=== PATIENT | female | born 1960 | race Caucasian/White ===

== ENCOUNTER 2020-07-16 10:24 | Emergency (ER) | payer BC ==
[2020-07-16] MEDS ORDERED: ACETAMINOPHEN 500 MG TAB ONE (11:42)
--- NOTE | 2020-07-16 12:34 | RAD REPORT ---
EXAM DESCRIPTION: Aj Pa And Lat (2 Views)07/16/2020 12:26 pm CLINICAL HISTORY: Cough COMPARISON: None FINDINGS: The lungs are mildly hazy. The heart is normal size IMPRESSION: The lungs are mildly hazy suspicious for pneumonia
[2020-07-16 14:09] LABS: Urine Blood TRACE (NEG); Urine Glucose NEGATIVE (NEG); Urine Protein NEGATIVE (NEG); Urine Specific Gravity 1.015 (1.005-1.030); Urine pH 5.5 (5.0-7.0)
[2020-07-16 14:09] LABS: Absolute Lymphocytes (CBC) 0.9 K/uL (0.7-4.9); Basophils % 0.2 % (0-1.3); Hematocrit 47.1 % (36.0-45.0); Lymphocytes % 11.8 % (15.3-44.8); MPV 9.3 fL (7.6-11.3); RBC Red Blood Cell Count 5.43 M/uL (3.86-4.86)
[2020-07-16 14:15] LABS: Urine Amorphous Sediment 2+ /HPF (NONE SEEN); Urine Bacteria 20-50 /HPF (<20); Urine Coarse Granular Casts >10 /LPF (NONE SEEN); Urine RBC <5 /HPF (NONE SEEN)
[2020-07-16 14:23] LABS: Protime INR 0.99
[2020-07-16 14:30] LABS: ALT/SGPT 36 U/L (12-78); AST/SGOT 19 U/L (15-37); Albumin 3.5 g/dL (3.4-5.0); Alkaline Phosphatase 74 U/L (45-117); BUN Blood Urea Nitrogen 18 mg/dL (7-18); Bicarbonate 25 mmol/L (21-32); Bilirubin Direct 0.1 mg/dL (0-0.2); Bilirubin Total 0.4 mg/dL (0.2-1.0); Glucose Level 138 mg/dL (74-106); NT PRO-BNP 46 pg/mL (<125); Potassium 3.8 mmol/L (3.5-5.1); Sodium Level 138 mmol/L (136-145); Troponin (Emerg Dept Use Only) < 0.02 ng/mL (0.0-0.045)
[2020-07-16] MEDS ORDERED: NA CHLORIDE 0.9% 500 ML ONE (15:17)
[2020-07-16] MEDS ORDERED: METHYLPREDNISOLONE 125 MG INJ ONE (15:17)
[2020-07-16] MEDS ORDERED: CEFTRIAXONE/SWI 1gm 1 GM/10 ML SYR ONE (15:17)
--- NOTE | 2020-07-16 15:27 | RAD REPORT ---
EXAM DESCRIPTION: CT - Chest For Pe Angio - 07/16/2020 3:15 pm CLINICAL HISTORY: Chest pain COMPARISON: July 16 2020 chest x-ray TECHNIQUE: Dynamically enhanced axial 3 mm thick images of the chest were obtained during administra tion of <100> mL Isovue 370 IV contrast. Coronal and oblique reconstruction images were generated and reviewed. Exam utilizes a protocol for optimal evaluation of pulmonary arterial tree. Maximum intensity projections 3D imaging was utilized All CT scans are performed using dose optimization technique as appropriate and may include automated exposure control or mA/KV adjustment according to patient size. FINDINGS: A pulmonary embolus is not seen. A thoracic aortic aneurysm is not noted. A pleural effusion is not seen. A pericardial effusion is not seen. Mild bilateral ground-glass opacities within the lungs IMPRESSION: Negative for a pulmonary embolism. Mild bilateral ground-glass opacities within the lungs may indicate Covid pneumonia
--- NOTE | 2020-07-16 15:55 | EDPHYS ---
Physician Documentation [facility] Name: Areli Urias Age: 60 yrs Sex: Female : 1960 Arrival Date: 07/16/2020 Time: 10:30 Bed 19 Private MD: ED Physician Sanjiv Jean Baptiste HPI: 07/16 13:25 This 60 yrs old Female presents to ER via Ambulatory with complaints of cp Breathing Difficulty, Chest Tightness. 13:25 The patient has shortness of breath at rest. Onset: The symptoms/episode began/occurred cp gradually. Duration: The symptoms are continuous. Associated signs and symptoms: Pertinent positives: chest pain, non-productive cough, fever, Pertinent negatives: diaphoresis, vomiting. Severity of symptoms: in the emergency department the symptoms are unchanged despite home interventions. 13:25 Patient reports being diagnosed with COVID-19 last week. Finished course of Zithromax cp and steroids. Reports cough, chest tightness and fever. Historical: - Allergies: 11:22 No Known Allergies; ca1 - Home Meds: 11:22 None [Active]; ca1 - PMHx: 11:22 None; ca1 - PSHx: 11:22 None; ca1 - Immunization history:: Client reports receiving the 1st dose of the Covid vaccine, Pneumococcal vaccine is up to date, Flu vaccine is up to date. - Social history:: Smoking status: Patient denies any tobacco usage or history of. ROS: 13:30 Constitutional: Positive for fever, Negative for poor PO intake. cp 13:30 Eyes: Negative for injury, pain, redness, and discharge. cp 13:30 ENT: Negative for ear pain, sore throat, difficulty swallowing, difficulty handling secretions. 13:30 Cardiovascular: Positive for chest pain, with cough, Negative for edema. 13:30 Respiratory: Positive for cough, with no reported sputum, shortness of breath, at rest. Negative for wheezing. 13:30 Abdomen/GI: Negative for abdominal pain, nausea, vomiting, and diarrhea, constipation. 13:30 : Negative for urinary symptoms. 13:30 Neuro: Negative for altered mental status, dizziness, headache, syncope, weakness. 13:30 All other systems are negative. Exam: 11:35 ECG was reviewed by the Attending Physician. cp 13:35 Constitutional: The patient appears in no acute distress, alert, awake, cp non-diaphoretic, non-toxic, well developed, well nourished. 13:35 Head/Face: Normocephalic, atraumatic. cp 13:35 Eyes: Periorbital structures: appear normal, Conjunctiva: normal, no exudate, no injection, Sclera: no appreciated abnormality, Lids and lashes: appear normal, bilaterally. 13:35 ENT: External ear(s): are unremarkable, Nose: is normal, Mouth: Lips: moist, Oral mucosa: moist, Posterior pharynx: Airway: no evidence of obstruction, patent. 13:35 Neck: ROM/movement: is normal, is supple, no meningismus, no nuchal rigidity. 13:35 Chest/axilla: Inspection: normal, Palpation: is normal, no crepitus, no tenderness. 13:35 Cardiovascular: Rate: normal, Rhythm: regular, Edema: is not appreciated, JVD: is not appreciated. 13:35 Respiratory: the patient does not display signs of respiratory distress, Respirations: labored breathing, is not present, intercostal retractions, are absent, shallow respirations, that is mild, Breath sounds: bronchial sounds, that are mild, are heard diffusely, stridor, is not appreciated, wheezing: is not appreciated. 13:35 Abdomen/GI: Inspection: abdomen appears normal, Bowel sounds: active, all quadrants, Palpation: abdomen is soft and non-tender, in all quadrants. 13:35 Back: pain, is absent, ROM is normal. 13:35 Neuro: Orientation: to person, place \T\ time. Mentation: is normal, Motor: moves all fours, strength is normal. Vital Signs: 11:20 BP 127 / 90; Pulse 108; Resp 18 S; Temp 103.1(O); Pulse Ox 97% on R/A; Weight 97.52 kg ca1 (R); Height 5 ft. 6 in. (167.64 cm) (R); Pain 8/10; 12:00 BP 113 / 80; Pulse 83; Resp 17; Pulse Ox 100% ; bp 13:00 BP 135 / 84; Pulse 91; Resp 17; Pulse Ox 95% ; bp 14:30 BP 137 / 79; Pulse 90; Resp 16; Pulse Ox 94% ; bp 16:30 BP 127 / 84; Pulse 81; Resp 16; Pulse Ox 93% ; bp 17:30 BP 131 / 82; Pulse 85; Resp 17; Temp 99.1; Pulse Ox 94% ; bp 11:20 Body Mass Index 34.70 (97.52 kg, 167.64 cm) ca1 MDM: 13:19 Patient medically screened. cp 15:50 Data reviewed: vital signs, nurses notes, lab test result(s), EKG, radiologic studies, cp CT scan, plain films. 15:50 Differential diagnosis: Bronchitis pneumonia, Pneumothorax pulmonary edema, Pulmonary cp Embolism Sepsis. Test interpretation: by ED physician or midlevel provider: ECG, plain radiologic studies. Counseling: I had a detailed discussion with the patient and/or guardian regarding: the historical points, exam findings, and any diagnostic results supporting the discharge/admit diagnosis, lab results, radiology results, to return to the emergency department if symptoms worsen or persist or if there are any questions or concerns that arise at home. ED course: VSS. Symptoms improved with meds. Patient with oxygen sats above 90% on room air while being monitored in ED. No signs of respiratory distress and patient appears non-toxic. Will discharge to home for continued monitoring. 07/16 13:22 Order name: Basic Metabolic Panel cp 07/16 13:22 Order name: CBC with Diff cp 07/16 13:22 Order name: LFT's cp 07/16 13:22 Order name: Magnesium cp 07/16 13:22 Order name: NT PRO-BNP cp 07/16 13:22 Order name: PT-INR cp 07/16 13:22 Order name: Troponin (emerg Dept Use Only) cp 07/16 13:22 Order name: CRP cp 07/16 13:22 Order name: D-Dimer cp 07/16 13:22 Order name: Urine Microscopic Only cp 07/16 13:52 Order name: Urine Dipstick--Ancillary (enter results) eb 07/16 13:52 Order name: Urine --Ancillary (enter results) eb 07/16 14:09 Order name: Urine --Ancillary; Complete Time: 14:30 EDMS 07/16 14:09 Order name: Urine Dipstick-Ancillary; Complete Time: 14:30 EDMS 07/16 11:23 Order name: Chest Pa And Lat (2 Views) XRAY ca1 07/16 12:35 Order name: RAD; Complete Time: 14:30 EDMS 07/16 14:16 Order name: Urine Microscopic Only; Complete Time: 14:30 EDMS 07/16 14:54 Interpretation: Normal except: UBACT 20-50; SQEPI 20-50; AMORPH 2+. cp 07/16 14:22 Order name: CBC with Automated Diff; Complete Time: 14:30 EDMS 07/16 14:31 Interpretation: Normal except: RBC 5.43; HGB 15.7; HCT 47.1; SARA% 82.7; LYM% 11.8. cp 07/16 14:25 Order name: Protime (+INR); Complete Time: 14:30 EDMS 07/16 14:25 Order name: D-Dimer; Complete Time: 14:30 EDMS 07/16 14:30 Order name: Basic Metabolic Panel; Complete Time: 14:31 EDMS 07/16 14:54 Interpretation: Normal except: GLUC 138; GFR 54. cp 07/16 14:30 Order name: Liver (Hepatic) Function; Complete Time: 14:31 EDMS 07/16 14:30 Order name: Troponin (Emerg Dept Use Only); Complete Time: 14:31 EDMS 07/16 14:30 Order name: NT PRO-BNP; Complete Time: 14:31 EDMS 07/16 14:30 Order name: C-Reactive Protein; Complete Time: 14:31 EDMS 07/16 14:31 Interpretation: Abnormal: C-REACTIVE PROT 82.20. cp 07/16 14:30 Order name: Magnesium; Complete Time: 14:31 EDMS 07/16 14:56 Order name: CT Chest For PE Angio cp 07/16 15:27 Order name: CT; Complete Time: 15:35 EDMS 07/16 11:23 Order name: EKG; Complete Time: 11:24 ca1 07/16 11:23 Order name: EKG - Nurse/Tech; Complete Time: 11:29 ca1 07/16 13:22 Order name: Cardiac monitoring; Complete Time: 13:36 cp 07/16 13:22 Order name: IV Saline Lock; Complete Time: 13:36 cp 07/16 13:22 Order name: Labs collected and sent; Complete Time: 13:36 cp 07/16 13:22 Order name: O2 Per Protocol; Complete Time: 13:24 cp 07/16 13:22 Order name: O2 Sat Monitoring; Complete Time: 13:24 cp 07/16 13:22 Order name: Urine Dipstick-Ancillary (obtain specimen); Complete Time: 13:37 cp EC:35 Rate is 102 beats/min. Rhythm is regular. WI interval is normal. QRS interval is cp normal. QT interval is normal. Interpreted by me. Reviewed by me. Administered Medications: 11:25 Drug: Tylenol 1000 mg Route: PO; ca1 15:00 Drug: NS 0.9% 500 ml Volume: 500 ml; Route: IV; Rate: 1 bolus; Site: right antecubital; bp 18:00 Follow up: IV Status: Completed infusion; IV Intake: 500ml bp 15:00 Drug: SOLU-Medrol 80 mg Route: IVP; Site: right antecubital; bp 17:59 Follow up: Response: No adverse reaction bp 15:00 Drug: Rocephin 1 grams Route: IV; Rate: calculated rate; Site: right antecubital; bp 17:59 Follow up: IV Status: Completed infusion; IV Intake: 50ml bp Disposition: 07/17 07:51 Co-signature as Attending Physician, Sanjiv Jean Baptiste MD I agree with the assessment and [facility] plan of care. Disposition: 07/16/20 15:54 Discharged to Home. Impression: Other viral pneumonia, Coronavirus infection, unspecified. - Condition is Stable. - Discharge Instructions: COVID-19. - Prescriptions for Augmentin 875- 125 mg Oral Tablet - take 1 tablet by ORAL route every 12 hours for 10 days; 20 tablet. Prednisone 20 mg Oral Tablet - take 2 tablets by ORAL route once daily for 5 days then 1 tablet daily for 5 days; 15 tablet. Albuterol Sulfate 90 mcg/actuation - inhale 1-2 puff by INHALATION route every 4-6 hours; 1 Inhaler. - Medication Reconciliation Form, Thank You Letter, Antibiotic Education, Prescription Opioid Use form. - Follow up: Private Physician; When: 1 - 2 days; Reason: Recheck today's complaints. - Problem is new. - Symptoms have improved. Signatures: Dispatcher [employer] Sanjiv Yanez MD MD cha Page, Corey, PA PA cp Peltier, Brian, RN RN bp Santa Edwards RN RN ca1 Corrections: (The following items were deleted from the chart) 07/16 11:17 11:02 Allergies: No Known Allergies; ca1 ca1 11:17 11:02 PMHx: Hypertension; ca1 ca1 11:17 11:02 PMHx: Non Hodgkin's Leukemia; ca1 ca1 11:17 11:02 PSHx: Hysterectomy; ca1 ca1 18:00 15:54 07/16/2020 15:54 Discharged to Home. Impression: Other viral pneumonia; bp Coronavirus infection, unspecified. Condition is Stable. Forms are Medication Reconciliation Form, Thank You Letter, Antibiotic Education, Prescription Opioid Use. Follow up: Private Physician; When: 1 - 2 days; Reason: Recheck today's complaints. Problem is new. Symptoms have improved. cp
--- NOTE | 2020-07-16 15:55 | ER ---
Nurse's Notes [facility] Name: Areli Urias Age: 60 yrs Sex: Female : 1960 Arrival Date: 07/16/2020 Time: 10:30 Bed 19 Private MD: Diagnosis: Other viral pneumonia;Coronavirus infection, unspecified Presentation: 07/16 11:20 Chief complaint: Patient states: Covid+ 8-9 days. I think I have pneumonia. Cough and ca1 SOB is getting worse and chest tightness. Coronavirus screen: Client denies travel out of the [place] in the last 14 days. Client reports previous positive COVID test result. Date of collection: July 08, 2020 Staff notified of need for isolation. Ebola Screen: Patient negative for fever greater than or equal to 101.5 degrees Fahrenheit, and additional compatible Ebola Virus Disease symptoms Patient denies exposure to infectious person. Patient denies travel to an Ebola-affected area in the 21 days before illness onset. No symptoms or risks identified at this time. Initial Sepsis Screen: Does the patient meet any 2 criteria? No. Patient's initial sepsis screen is negative. Does the patient have a suspected source of infection? No. Patient's initial sepsis screen is negative. Risk Assessment: Do you want to hurt yourself or someone else? Patient reports no desire to harm self or others. Onset of symptoms was July 16, 2020. 11:20 Acuity: MARIEL 3 ca1 11:20 Method Of Arrival: Ambulatory ca1 Triage Assessment: 11:10 General: Appears distressed, uncomfortable, obese, Behavior is calm, cooperative, bp appropriate for age. Pain: Denies pain. EENT: No deficits noted. Neuro: Level of Consciousness is awake, alert, obeys commands, Oriented to Appropriate for age. Cardiovascular: No deficits noted. Respiratory: Reports shortness of breath cough that is Onset: The symptoms/episode began/occurred 8-9 DAYS, the patient has moderate shortness of breath. GI: No signs and/or symptoms were reported involving the gastrointestinal system. : No signs and/or symptoms were reported regarding the genitourinary system. Derm: No deficits noted. Musculoskeletal: No deficits noted. Historical: - Allergies: 11: No Known Allergies; ca1 - Home Meds: 11:22 None [Active]; ca1 - PMHx: 11:22 None; ca1 - PSHx: 11:22 None; ca1 - Immunization history:: Client reports receiving the 1st dose of the Covid vaccine, Pneumococcal vaccine is up to date, Flu vaccine is up to date. - Social history:: Smoking status: Patient denies any tobacco usage or history of. Screenin:10 Abuse screen: Denies threats or abuse. Denies injuries from another. Nutritional bp screening: No deficits noted. Tuberculosis screening: No symptoms or risk factors identified. Fall Risk None identified. Assessment: 11:10 General: SEE TRIAGE NOTE. Neuro: Level of Consciousness is awake, alert, obeys bp commands, Oriented to Appropriate for age. Cardiovascular: Rhythm is sinus rhythm. Respiratory: Airway is patent Respiratory effort is even, unlabored, Breath sounds are coarse bilaterally. GI: No signs and/or symptoms were reported involving the gastrointestinal system. : No signs and/or symptoms were reported regarding the genitourinary system. EENT: No deficits noted. Derm: No deficits noted. Musculoskeletal: No signs and/or symptoms reported regarding the musculoskeletal system. 12:00 Reassessment: No changes from previously documented assessment. Patient and/or family bp updated on plan of care and expected duration. Pain level reassessed. Patient is alert, oriented x 3, equal unlabored respirations, skin warm/dry/pink. 14:00 Reassessment: No changes from previously documented assessment. Patient and/or family bp updated on plan of care and expected duration. Pain level reassessed. Patient is alert, oriented x 3, equal unlabored respirations, skin warm/dry/pink. ALL CURRENT ORDERS COMPLETED. 16:00 Reassessment: No changes from previously documented assessment. Patient and/or family bp updated on plan of care and expected duration. Pain level reassessed. Patient is alert, oriented x 3, equal unlabored respirations, skin warm/dry/pink. 16:35 Reassessment: D/C ON HOLD FOR IVF. bp 17:30 Reassessment: PT D/C HOME FOR VIRAL INFECTION, COVID +. bp Vital Signs: 11:20 BP 127 / 90; Pulse 108; Resp 18 S; Temp 103.1(O); Pulse Ox 97% on R/A; Weight 97.52 kg ca1 (R); Height 5 ft. 6 in. (167.64 cm) (R); Pain 8/10; 12:00 BP 113 / 80; Pulse 83; Resp 17; Pulse Ox 100% ; bp 13:00 BP 135 / 84; Pulse 91; Resp 17; Pulse Ox 95% ; bp 14:30 BP 137 / 79; Pulse 90; Resp 16; Pulse Ox 94% ; bp 16:30 BP 127 / 84; Pulse 81; Resp 16; Pulse Ox 93% ; bp 17:30 BP 131 / 82; Pulse 85; Resp 17; Temp 99.1; Pulse Ox 94% ; bp 11:20 Body Mass Index 34.70 (97.52 kg, 167.64 cm) ca1 ED Course: 10:30 Patient arrived in ED. am2 11:01 Triage completed. ca1 11:02 Arm band placed on right wrist. ca1 11:10 Patient has correct armband on for positive identification. Bed in low position. Call bp light in reach. Side rails up X2. 13:08 Sanjiv Cruz PA is PHCP. cp 13:08 Sanjiv Jean Baptiste MD is Attending Physician. cp 13:08 Guanaco Mitchell, FRANCISCO is Primary Nurse. bp 13:35 Inserted saline lock: 20 gauge in right antecubital area, using aseptic technique. bp Blood collected. 17:30 No provider procedures requiring assistance completed. IV discontinued, intact, bp bleeding controlled, No redness/swelling at site. Pressure dressing applied. Administered Medications: 11:25 Drug: Tylenol 1000 mg Route: PO; ca1 15:00 Drug: NS 0.9% 500 ml Volume: 500 ml; Route: IV; Rate: 1 bolus; Site: right antecubital; bp 18:00 Follow up: IV Status: Completed infusion; IV Intake: 500ml bp 15:00 Drug: SOLU-Medrol 80 mg Route: IVP; Site: right antecubital; bp 17:59 Follow up: Response: No adverse reaction bp 15:00 Drug: Rocephin 1 grams Route: IV; Rate: calculated rate; Site: right antecubital; bp 17:59 Follow up: IV Status: Completed infusion; IV Intake: 50ml bp Intake: 17:59 IV: 50ml; Total: 50ml. bp 18:00 IV: 500ml; Total: 550ml. bp Outcome: 15:54 Discharge ordered by . cp 17:30 Discharged to home ambulatory. bp 17:30 Condition: stable 17:30 Discharge instructions given to patient, Instructed on discharge instructions, follow up and referral plans. medication usage, Demonstrated understanding of instructions, follow-up care, medications, Prescriptions given X 3. 18:00 Patient left the ED. bp Signatures: Sanjiv Cruz PA PA cp Moreno Arina am2 Guanaco Mitchell RN RN bp Santa Edwards RN RN ca1 Corrections: (The following items were deleted from the chart) 11:14 10:37 Chief complaint: Patient's son or daughter states: daughter: Was admitted here ca1 for dehydration. Discharged last , since then she hasn't had a BM. Dr. Vizcaino sent us here to check her gut, and she seems to be bloated. Denies Chest pain. She's also confused. ca1 10:37 Coronavirus screen: Client denies travel out of the [place] in the last 14 days. At [facility] this time, the client does not indicate any symptoms associated with coronavirus-19. The client reports previous COVID testing was negative. Date of collection: July 07, 2020 ca1 10:37 Ebola Screen: Patient negative for fever greater than or equal to 101.5 degrees ca1 Fahrenheit, and additional compatible Ebola Virus Disease symptoms Patient denies exposure to infectious person. Patient denies travel to an Ebola-affected area in the 21 days before illness onset. No symptoms or risks identified at this time. ca1 10:37 Onset of symptoms was July 16, 2020 ca1 ca1 10:37 Risk Assessment: Do you want to hurt yourself or someone else? Patient reports no ca1 desire to harm self or others. ca1 10:37 Initial Sepsis Screen: Does the patient meet any 2 criteria? No. Patient's ca1 initial sepsis screen is negative. Does the patient have a suspected source of infection? No. Patient's initial sepsis screen is negative. ca1 10:37 Chief complaint: Patient's son or daughter states: daughter: Was admitted here ca1 for dehydration. Discharged last , since then she hasn't had a BM. Dr. Vizcaino sent us here to check her gut, and she seems to be bloated. Denies Chest pain. She's also confused. ca1 10:37 Method Of Arrival: Wheelchair ca1 ca1 10:37 Acuity: MARIEL 2 ca1 ca1 10:37 BP 98 / 84; Pulse 64bpm; Resp 20bpm; Spontaneous; Pulse Ox 100% RA; 64.36 kg ca1 Reported; Height 5 ft. 5 in. Reported; BMI: 23.6; ca1 11:02 Note Pt assisted to the restroom ca1 ca1 11:02 Allergies: No Known Allergies; ca1 ca1 11:02 PMHx: Hypertension; ca1 ca1 11:02 PMHx: Non Hodgkin's Leukemia; ca1 ca1 11:02 PSHx: Hysterectomy; ca1 ca1
[2020-07-16 18:18] VITALS: BP 131/82; TEMP 99.1; O2SAT 94
--- NOTE | 2020-07-17 06:51 | EKG ---
Test Date: 2020-07-16 Test Time: 11:30:24 Nut Grader: ADELA MEASUREMENT RESULTS: Intervals: Rate: 102 DE: 116 QRSD: 74 QT: 340 QTc: 443 [place]: P: 11 DE: 116 QRS: 47 T: 34 INTERPRETIVE STATEMENTS: Sinus tachycardia Low voltage QRS Borderline ECG No previous ECG available for comparison Electronically Signed On 07-17-20 06:49:16 STILL RUNNER by Manfred Brown
== END 2020-07-16 18:00 | disposition home or self-care (01) ==
LOC: ER 10:24
DX: U07.1 COVID-19 (principal); J12.82 Pneumonia due to coronavirus disease 2019
CPT/HCPCS: 93005; 85025; 80048; 36415; 83735; 81025; 85610; 85379; 80076; 84484; 83880; 86140; 71275; 71046; Q9967; J0696; J7040; J2930; 81003; 81015; 96365; 96366; 96375; 99284